=== PATIENT | female | born 1940 ===

== ENCOUNTER 2022-04-06 12:15 | Inpatient (IN) | payer OTHER ==
[~2022-04-06] VITALS: Ht 157.5 cm; Wt 79.4 kg
[2022-04-06] MEDS ORDERED: SYNTHROID50 MCG PO (15:29)
[2022-04-06] MEDS ORDERED: FLOVENT HFA12 GM IH (15:30)
[2022-04-06] MEDS ORDERED: MONTELUKAST SOD10 MG PO (15:30)
[2022-04-06] MEDS ORDERED: PROAIR HFA8.5 GM IH (15:31)
[2022-04-08] MEDS ORDERED: FLOVENT HFA10.6 GM (13:04)
== END 2022-04-10 21:08 | disposition home or self-care (01) | DRG 331 ==
LOC: O/R 04-08 06:44 → SURH 04-08 11:15
PROVIDERS: ADMIT Surgery; ATTEND Surgery
PROC: 0DBP4ZZ Excision of Rectum, Percutaneous Endoscopic Approach (ICD-10-PCS; 2022-04-08)
PROC: 0DJD8ZZ Inspection of Lower Intestinal Tract, Via Natural or Artificial Opening Endoscopic (ICD-10-PCS; 2022-04-08)
PROC: 0DTN4ZZ Resection of Sigmoid Colon, Percutaneous Endoscopic Approach (ICD-10-PCS; principal; 2022-04-08 11:15)
DX: K57.30 Diverticulosis of large intestine without perforation or abscess without bleeding (principal); D12.6 Benign neoplasm of colon, unspecified; R10.32 Left lower quadrant pain; K59.02 Outlet dysfunction constipation; R10.31 Right lower quadrant pain; J44.9 Chronic obstructive pulmonary disease, unspecified; Z20.822 Contact with and (suspected) exposure to COVID-19